=== PATIENT | female | born 1940 | race Caucasian/White ===

== ENCOUNTER 2017-05-18 09:23 | Emergency (ER) | payer MEDICARE ==
--- NOTE | 2017-05-18 11:10 | UC ---
Lower Extremity/Ankle HPI - HPI Summary HPI Summary: Pt presents for evaluation of wound. Pt states o 04/26/17 pulled a tick or scab off left posterior calf. Pt states saw PCP and was started on Doxy and topical falvio. Pt states she returen on 05/04 - at this time he "barely looked" and she was concerned was not improving. Pt states she was placed on penicillin. Pt states she was supposed to go back in 3 days for a recheck. Pt states she had to cancel the appt. Pt has continued to place topical flavio. Pt denies pain. no fevers, chills, rash. No odor, drainage. Pt states her mom had vascular compromised and is concerned this is the cause of today's sx. Pt without h/o vascular dx. Pt is on medication for HTN Pt's medications reviewed this visit. - History of Current Complaint Stated Complaint: LEFT LEG COMPLAINT Hx Obtained From: Patient Onset/Duration: Gradual Onset Severity Initially: Mild Severity Currently: Mild - Allergies/Home Medications Allergies/Adverse Reactions: Allergies Allergy/AdvReac Type Severity Reaction Status Date / Time Propoxyphene [From Darvon] Allergy Hallucinati Verified 05/18/17 11:31 ons Home Medications: Home Medications Benazepril & Hydrochlorothiazi [Benazepril HCl/Hydrochlor] 1 tab PO DAILY [History Confirmed 05/18/17] PMH/Surg Hx/FS Hx/Imm Hx Previously Healthy: Yes - Surgical History Surgical History: None - Social History Occupation: Retired Lives: With Family Review of Systems Constitutional: Negative Skin: Other All Other Systems Reviewed And Are Negative: Yes Physical Exam Triage Information Reviewed: Yes Appearance: Well-Appearing, No Pain Distress, Well-Nourished Eye Exam: Normal Eyes: Positive: Conjunctiva Clear ENT: Positive: Hearing grossly normal Neck exam: Normal Neck: Positive: Supple, Nontender, No Lymphadenopathy Respiratory Exam: Normal Respiratory: Positive: Chest non-tender, Lungs clear, Normal breath sounds, No respiratory distress, No accessory muscle use Cardiovascular Exam: Normal Cardiovascular: Positive: RRR, No Murmur, Pulses Normal, Other: - 2+ DP, PT CBt <2 sec all toes feet warm Musculoskeletal Exam: Normal Neurological Exam: Normal Neurological: Positive: Alert Psychological Exam: Normal Skin: Positive: Other - distal calf - left posterior - pt with quarter sized lesion healthy appearing border with pink granulation tissue. No fluctuance, no discharge,no odor. Center area with yellow gelantous granulation tissue likely second to topical ointment Lower Extremity Course/Dx - Course Course Of Treatment: Pt with a healthy appearing healing wound left posterior calf. Pt with food distal CSM. recommend leave open exposed when able. otherwise abx ointment thin layer and bandage. referral info to [facility] [place] [facility] [place] [facility] (pt preference given geography). return precautions discussed. pt comfortable and in agreement with plan. VS reviewed - pt noted to be htn -current diagnosis. d/w pt importance of med - Differential Dx/Diagnosis Provider Diagnoses: healing wound Discharge - Discharge Plan Condition: Stable Disposition: HOME Patient Education Materials: Chronic Wound Care (ED) Referrals: clinic, wound [Other] Additional Instructions: - Leave your wound open and exposed to air when you are able. Otherwise, cover your wound with a thin layer of antibiotic ointment such as neosporin, polysporin and bandaid - You have been given referral information for the wound care center through [facility]. you may contact them to schedule Alternatively, you may contact the wound care center affiliated with [facility]. You may contact the main hospital number at [phone] to schedule this appointment. - If you develop increased pain, drainage, swelling, odor, red streaking or other concerns you should return here or go to the emergency department
== END 2017-05-18 11:40 | disposition home or self-care (01) ==
LOC: UCCORT 09:23
DX: Z51.89 Encounter for other specified aftercare (principal); S81.802D Unspecified open wound, left lower leg, subsequent encounter; I10 Essential (primary) hypertension
CPT/HCPCS: 99202; G0463